=== PATIENT | male | born 1980 | race Caucasian/White ===

== ENCOUNTER 2018-04-08 17:12 | Emergency (ER) | payer SELFPAY ==
[~2018-04-08] VITALS: Ht 170.2 cm; Wt 70.0 kg
[2018-04-08 18:39] LABS: BASOPHILS % 0.2 % (0.0-2.0); EOSINOPHILS % 0.4 % (0.0-5.0); HEMATOCRIT. 40.9 % (42.0-52.0); HEMOGLOBIN. 13.9 g/dL (14.0-18.0); LYMPHOCYTES % 11.9 % (20.0-50.0); MEAN CORPUSCULAR VOLUME 97.1 fL (80.0-94.0); MEAN PLATELET VOLUME 8.1 fl (7.4-10.4); MONOCYTES % 5.4 % (2.0-8.0); NEUTROPHILS % 82.1 % (40.0-76.0); PLATELET 264 x1000/uL (130-400); RED BLOOD CELL COUNT 4.22 mill/uL (4.7-6.1)
[2018-04-08 18:44] LABS: CHLORIDE 104 mEq/L (98-107)
[2018-04-08] MEDS ORDERED: MORPHINE SULFATE 10 MG/ML CPJ IV NR (19:00)
[2018-04-08 19:21] LABS: PROTHROMBIN TIME 10.2 sec (9.1-11.1)
[2018-04-08] MEDS ORDERED: CEFTRIAXONE SODIUM 250 MG/VIAL IM ONE (22:00)
[2018-04-08] MEDS ORDERED: AZITHROMYCIN 500 MG TABLET PO ONE (22:00)
[2018-04-08] MEDS ORDERED: IBUPROFEN 800MG TABLET PO ONE (22:15)
[2018-04-08 22:50] VITALS: BP 113/68
== END 2018-04-08 22:50 | disposition home or self-care (01) ==
LOC: ER 17:12
DX: N45.1 Epididymitis (principal); R10.84 Generalized abdominal pain; N50.819 Testicular pain, unspecified; R55 Syncope and collapse; R11.0 Nausea
CPT/HCPCS: 36415; 71045; 74176; 76870; 80053; 84484; 85025; 85610; 93005; 93976; 96372; 96374; 99284; J0696; J2270

== ENCOUNTER 2022-11-08 22:49 | Emergency (ER) | payer SELFPAY ==
[~2022-11-08] VITALS: Ht 167.6 cm; Wt 65.3 kg
[2022-11-08 23:12] VITALS: BP 127/81; PULSE 77; RESP 18; TEMP 98.8; O2SAT 100
[2022-11-08 23:49] LABS: BASOPHILS % 0.3 % (0.0-2.0); EOSINOPHILS % 1.7 % (0.0-5.0); HEMATOCRIT. 39.4 % (42.0-52.0); HEMOGLOBIN. 13.6 g/dL (14.0-18.0); LYMPHOCYTES % 17.8 % (20.0-50.0); MEAN CORPUSCULAR HEMOGLOBIN 33.4 pg (28.0-32.0); MEAN CORPUSCULAR HGB CONC 34.6 g/dL (31.0-37.0); MEAN CORPUSCULAR VOLUME 96.7 fL (80.0-94.0); MEAN PLATELET VOLUME 7.9 fl (7.4-10.4); MONOCYTES % 3.9 % (2.0-8.0); NEUTROPHILS % 76.3 % (40.0-76.0); PLATELET 274 x1000/uL (130-400); RED BLOOD CELL COUNT 4.07 mill/uL (4.7-6.1); RED CELL DISTRIBUTION WIDTH 11.9 % (11.6-14.6); WHITE BLOOD COUNT 9.9 x1000/uL (4.5-11.0)
[2022-11-08 23:51] LABS: CHLORIDE 106 mEq/L (98-107); INDEX HEMOLYSI 1 (1-3); INDEX ICTERIC 1 (1-4); INDEX LIPEMIC 1 (1-3); POTASSIUM 3.6 mEq/L (3.5-5.1); SODIUM 137 mEq/L (136-145)
[2022-11-08 23:59] LABS: ALANINE AMINOTRANSFERASE 21 IU/L (13-61); ALBUMIN 4.1 g/dL (3.4-5.0); ASPARTATE AMINOTRANSFERASE 16 IU/L (15-37); BILIRUBIN TOTAL 0.3 mg/dL (0.1-1.0); CALCIUM 9.1 mg/dL (8.5-10.1); CARBON DIOXIDE 28 mEq/L (21-32); CREATININE 1.2 mg/dL (0.6-1.3); GLUCOSE 129 mg/dL (70-105); PROTEIN TOTAL 7.6 g/dL (6.0-8.3); UREA NITROGEN BLOOD 16 mg/dL (7-21)
[2022-11-09 01:50] LABS: CLARITY URINE TURBID (CLEAR); COLOR URINE ORANGE (YELLOW); GLUCOSE URINE NEGATIVE (NEGATIVE); KETONES URINE NEGATIVE (NEGATIVE); LEUKOCYTE ESTERASE URINE 1+ (NEGATIVE); NITRITE URINE NEGATIVE (NEGATIVE); OCCULT BLOOD URINE 3+ (NEGATIVE); PH URINE 5.5 (4.5-8.0); PROTEIN URINE 2+ (NEGATIVE); SPECIFIC GRAVITY URINE 1.023 (1.005-1.030)
[2022-11-09] MEDS ORDERED: POLYETHYLENE GLYCOL 3350 (17GM) 1 DOSE PACK PO ONE (02:00)
[2022-11-09] MEDS ORDERED: KETOROLAC 30MG/ML VIAL IM ONE (02:00)
[2022-11-09] MEDS ORDERED: TAMS-11 MT (03:11)
[2022-11-09] MEDS ORDERED: POLY17PO3 MT (03:11)
[2022-11-09] MEDS ORDERED: IBUP-2029 MT (03:11)
[2022-11-09 05:17] LABS: WBC URINE 0-2 /hpf (0-2)
[2022-11-09 05:18] LABS: RBC URINE TNTC /hpf (0-2)
[2022-11-09 05:20] LABS: BACTERIA URINE NONE SEEN; SQUAMOUS EPITHELIAL CELL URINE NONE SEEN /lpf (RARE/1+)
[2022-11-09 05:21] LABS: AMORPHOUS SEDIMENT URINE 1+ /lpf
== END 2022-11-09 03:48 | disposition home or self-care (01) ==
LOC: ER 22:49
DX: N23 Unspecified renal colic (principal); K59.00 Constipation, unspecified
CPT/HCPCS: 80053; 85025; 36415; 99285; 81003; 74018; 76700; 96372; Z7610 ×2; J1885

== ENCOUNTER 2023-05-03 18:18 | Emergency (ER) | payer SELFPAY ==
[~2023-05-03] VITALS: Ht 172.7 cm; Wt 75.0 kg
[~2023-05-03 18:18] MED LIST: IBUP-2029 MT; POLY17PO3 MT; TAMS-11 MT
[2023-05-03] MEDS ORDERED: LIDOCAINE HCL 1% 20ML VIAL (Pyxis) INJ INFIL ONE (18:30)
[2023-05-03] MEDS ORDERED: TETANUS, DIPHTHERIA, PERTUSSIS VAC/PF 0.5ML (>10YR OLD) IM ONE (18:30)
[2023-05-03 18:42] VITALS: O2SAT 99
[2023-05-03] MEDS ORDERED: OXYCODONE HCL/ACETAMINOPHEN 5/325MG TABLET PO ONE (19:15)
[2023-05-03] MEDS ORDERED: AMOX1TAB16 MT (19:42)
[2023-05-03] MEDS ORDERED: IBUP-2029 MT (19:42)
[2023-05-03 20:45] VITALS: BP 139/78; PULSE 86; RESP 19; TEMP 98.1
== END 2023-05-03 20:50 | disposition home or self-care (01) ==
LOC: ER 18:18
DX: S60.459A Superficial foreign body of unspecified finger, initial encounter (principal); X58.XXXA Exposure to other specified factors, initial encounter; Y93.89 Activity, other specified; Y92.89 Other specified places as the place of occurrence of the external cause; Y99.8 Other external cause status
CPT/HCPCS: 73140; 90715; 90471; 99285; J3490; Z7610 ×4